=== PATIENT | male | born 1970 | race Native Hawaiian/Other Pacific Islander ===

== ENCOUNTER 2017-10-11 01:57 | Emergency (ER) | payer OTHER ==
[~2017-10-11] VITALS: Ht 180.3 cm; Wt 86.2 kg
[2017-10-11 03:37] VITALS: BP 142/89; TEMP 97
== END 2017-10-11 03:39 | disposition home or self-care (01) ==
LOC: ED 01:57
DX: R31.9 Hematuria, unspecified (principal); R10.31 Right lower quadrant pain
CPT/HCPCS: 81000; 96372; 99283; J1885